=== PATIENT | male | born 1950 | race Two or more races ===

== ENCOUNTER 2022-07-30 21:45 | Inpatient (IN) | payer OTHER ==
[~2022-07-30] VITALS: Ht 170.2 cm; Wt 70.4 kg
[2022-07-31] MEDS ORDERED: ASPIRIN 325MG EC TABLET PO ONE (05:15)
[2022-07-31 05:25] LABS: HEMATOCRIT 40.2 % (42.0-52.0); HEMOGLOBIN 13.2 g/dL (14.0-18.0); MEAN CORPUSCULAR HEMOGLOBIN 29.2 pg (28.0-32.0); MEAN CORPUSCULAR VOLUME 89.3 fL (80.0-94.0); PLATELET 197 x1000/uL (130-400); RED CELL DISTRIBUTION WIDTH 15.7 % (11.6-14.6)
[2022-07-31 05:32] LABS: CHLORIDE 117 mEq/L (98-107)
[2022-07-31] MEDS ORDERED: ACETAMINOPHEN 325MG TABLET PO PRN (09:15)
[2022-07-31] MEDS ORDERED: ONDANSETRON HCL 4MG/2ML INJ IV PRN (09:15)
[2022-07-31] MEDS: SODIUM CHLORIDE 0.45% 1,000 ML IV SCH ×2 (10:04→22:09)
[2022-07-31 13:00] VITALS: BP 125/82
[2022-07-31 16:00] VITALS: BP 144/82
[2022-07-31 20:00] VITALS: BP 159/87
[2022-07-31] MEDS: ATORVASTATIN CALCIUM 20MG TABLET PO SCH (21:00)
[2022-07-31] MEDS: RISPERIDONE 0.5MG TABLET PO SCH (21:00)
[2022-07-31] MEDS: ENOXAPARIN 40MG/0.4ML SYR SUBCUT SCH (22:08)
[2022-07-31] MEDS: LORAZEPAM 2MG/ML CPJ IV PRN (22:11)
[2022-08-01] VITALS: BP 152/89
[2022-08-01 04:00] VITALS: BP 125/79
[2022-08-01 07:39] LABS: BASOPHILS % 0.3 % (0.0-2.0); EOSINOPHILS % 0.4 % (0.0-5.0); HEMATOCRIT. 40.7 % (42.0-52.0); HEMOGLOBIN. 13.6 g/dL (14.0-18.0); LYMPHOCYTES % 10.8 % (20.0-50.0); MEAN CORPUSCULAR HEMOGLOBIN 29.8 pg (28.0-32.0); MEAN PLATELET VOLUME 12.1 fl (7.4-10.4); NEUTROPHILS % 82.5 % (40.0-76.0); PLATELET 193 x1000/uL (130-400); RED BLOOD CELL COUNT 4.57 mill/uL (4.7-6.1); RED CELL DISTRIBUTION WIDTH 15.6 % (11.6-14.6)
[2022-08-01 08:00] VITALS: BP 166/102
[2022-08-01] MEDS ORDERED: ASPIRIN 81MG TABLET PO SCH (09:00)
[2022-08-01] MEDS: RISPERIDONE 0.5MG TABLET PO SCH ×2 (10:08→22:12)
[2022-08-01] MEDS: AMLODIPINE 10MG TABLET PO SCH (10:09)
[2022-08-01 12:01] VITALS: BP 134/89
[2022-08-01 16:00] VITALS: BP 118/78
[2022-08-01] MEDS: LORAZEPAM 2MG/ML CPJ IV PRN (17:46)
[2022-08-01 20:00] VITALS: BP 131/80
[2022-08-01] MEDS: ATORVASTATIN CALCIUM 20MG TABLET PO SCH (22:12)
[2022-08-01] MEDS: ENOXAPARIN 40MG/0.4ML SYR SUBCUT SCH (22:12)
[2022-08-02] VITALS: BP 154/95
[2022-08-02 04:00] VITALS: BP 146/91
[2022-08-02] MEDS: SODIUM CHLORIDE 0.45% 1,000 ML IV SCH (06:18)
[2022-08-02 08:00] VITALS: BP 110/70
[2022-08-02] MEDS: RISPERIDONE 0.5MG TABLET PO SCH (09:00)
[2022-08-02] MEDS ORDERED: ASPIRIN 300MG SUPP PR SCH (09:00)
[2022-08-02] MEDS: LORAZEPAM 2MG/ML CPJ IV PRN (09:24)
[2022-08-02] MEDS: AMLODIPINE 10MG TABLET PO SCH (09:29)
[2022-08-02 12:00] VITALS: BP 129/86
[2022-08-02 16:00] VITALS: BP 122/83
[2022-08-02 16:16] VITALS: BP 122/83
== END 2022-08-02 18:00 | disposition short-term general hospital (02) | DRG 70 ==
LOC: ER 21:45 → 7EST 07-31 05:15
PROVIDERS: ADMIT Internal Medicine; ATTEND Internal Medicine
DX: G93.41 Metabolic encephalopathy (principal); N17.0 Acute kidney failure with tubular necrosis; E87.1 Hypo-osmolality and hyponatremia; H49.03 Third [oculomotor] nerve palsy, bilateral; F29 Unspecified psychosis not due to a substance or known physiological condition; E87.8 Other disorders of electrolyte and fluid balance, not elsewhere classified; I10 Essential (primary) hypertension; R29.6 Repeated falls; Z20.822 Contact with and (suspected) exposure to COVID-19; S00.81XA Abrasion of other part of head, initial encounter; S80.212A Abrasion, left knee, initial encounter; S80.211A Abrasion, right knee, initial encounter; S30.810A Abrasion of lower back and pelvis, initial encounter; W01.0XXA Fall on same level from slipping, tripping and stumbling without subsequent striking against object, initial encounter; Y93.89 Activity, other specified; Y92.89 Other specified places as the place of occurrence of the external cause; Y99.8 Other external cause status; Z78.1 Physical restraint status; Z86.73 Personal history of transient ischemic attack (TIA), and cerebral infarction without residual deficits
CPT/HCPCS: 36415; 73120; 80048; 80053; 82962; 85025; 85027; 87426; 92610; 99285; J1650; J2060

== ENCOUNTER 2022-08-18 08:00 | Emergency (ER) | payer OTHER ==
[~2022-08-18] VITALS: Ht 177.8 cm; Wt 73.0 kg
[2022-08-18 11:59] LABS: BASOPHILS % 0.4 % (0.0-2.0); EOSINOPHILS % 0.4 % (0.0-5.0); HEMATOCRIT. 40.2 % (42.0-52.0); HEMOGLOBIN. 13.3 g/dL (14.0-18.0); LYMPHOCYTES % 9.9 % (20.0-50.0); MEAN CORPUSCULAR HEMOGLOBIN 28.9 pg (28.0-32.0); MEAN CORPUSCULAR VOLUME 87.5 fL (80.0-94.0); NEUTROPHILS % 83.3 % (40.0-76.0); PLATELET 238 x1000/uL (130-400); RED BLOOD CELL COUNT 4.59 mill/uL (4.7-6.1); RED CELL DISTRIBUTION WIDTH 15.6 % (11.6-14.6)
[2022-08-18 12:12] LABS: CHLORIDE 102 mEq/L (98-107)
[2022-08-18 12:34] LABS: ETHANOL BLOOD < 10 mg/dL
[2022-08-18] MEDS ORDERED: OLANZAPINE 10 MG/VIAL IM NR (14:30)
[2022-08-18 14:54] LABS: *AMPHETAMINES SCREEN URINE NEGATIVE (NEGATIVE); *BARBITURATES SCREEN URINE NEGATIVE (NEGATIVE); *BENZODIAZEPINES SCREEN URINE NEGATIVE (NEGATIVE); *COCAINE SCREEN URINE NEGATIVE (NEGATIVE); CANNABINOID URINE SCREEN NEGATIVE (NEGATIVE); METHADONE URINE SCREEN NEGATIVE (NEGATIVE); OPIATES URINE SCREEN NEGATIVE (NEGATIVE); PHENCYCLIDINE URINE SCREEN NEGATIVE (NEGATIVE)
[2022-08-18 15:04] LABS: CLARITY URINE CLEAR (CLEAR)
[2022-08-18 15:05] LABS: COLOR URINE YELLOW (YELLOW); KETONES URINE TRACE (NEGATIVE); LEUKOCYTE ESTERASE URINE NEGATIVE (NEGATIVE); NITRITE URINE NEGATIVE (NEGATIVE); OCCULT BLOOD URINE NEGATIVE (NEGATIVE); PROTEIN URINE TRACE (NEGATIVE); SPECIFIC GRAVITY URINE 1.018 (1.005-1.030); UROBILINOGEN URINE 0.2 E.U./dL (0.2-1.0)
[2022-08-18] MEDS ORDERED: LORAZEPAM 2MG/ML CPJ IV ONE (16:00)
[2022-08-18 16:06] VITALS: BP 145/70
== END 2022-08-18 17:13 | disposition short-term general hospital (02) ==
LOC: ER 08:00 → CANBEDREQ 13:50 → ER 17:13
DX: F03.90 Unspecified dementia, unspecified severity, without behavioral disturbance, psychotic disturbance, mood disturbance, and anxiety (principal); H54.7 Unspecified visual loss; I25.2 Old myocardial infarction; Z86.73 Personal history of transient ischemic attack (TIA), and cerebral infarction without residual deficits
CPT/HCPCS: 36415; 70450; 71045; 80053; 80305; 80320; 81003; 82962; 85025; 96372; 96374; 99285; J2060; J3490; G0480